=== PATIENT | female | born 1940 | race Caucasian/White ===

== ENCOUNTER 2018-07-17 16:47 | Emergency (ER) | payer MEDICARE ==
[2018-07-17 17:04] VITALS: BP 160/93
--- NOTE | 2018-07-17 18:09 | UC ---
Ear Complaint HPI - HPI Summary HPI Summary: 77 yo female with URI symptoms x 2 weeks runny nose and cough as well as sinus pressure and post nasal drip for one week has had right otalgia and decreased hearing as well as the constant feeling she needs her ear to "POP" - History of Current Complaint Chief Complaint: UCEar Stated Complaint: EAR ACHE Time Seen by Provider: 07/17/18 18:06 Hx Obtained From: Patient Onset/Duration: Sudden Onset, Gradual Onset Severity Initially: Mild Severity Currently: Moderate Pain Intensity: 6 Pain Scale Used: 0-10 Numeric Aggravating Factors: Nothing Alleviating Factors: Nothing Associated Signs/Symptoms: Positive: Hearing Loss, URI Symptoms - Allergies/Home Medications Allergies/Adverse Reactions: Allergies Allergy/AdvReac Type Severity Reaction Status Date / Time No Known Allergies Allergy Verified 07/17/18 17:05 Home Medications: Home Medications Atenolol TAB* [Tenormin TAB* 50 MG] 50 mg PO DAILY 07/17/18 [History Confirmed 07/17/18] Estradiol [Divigel] 1.1 mg TOPICAL DAILY 07/17/18 [History Confirmed 07/17/18] Losartan TAB* [Cozaar TAB*] 100 mg PO DAILY 07/17/18 [History Confirmed 07/17/18 ] Rivaroxaban TAB(*) [Xarelto 20 mg] 20 mg PO DAILY 07/17/18 [History Confirmed ] Simvastatin TAB(NF) [Zocor 20 MG (NF)] 20 mg PO DAILY 07/17/18 [History Confirmed 07/17/18] PMH/Surg Hx/FS Hx/Imm Hx Previously Healthy: Yes Endocrine History: Dyslipidemia Cardiovascular History: Hypertension, Atrial Fibrillation - Surgical History Surgical History: Yes Surgery Procedure, Year, and Place: back - Family History Known Family History: Positive: Hypertension - Social History Alcohol Use: Daily Substance Use Type: None Smoking Status (MU): Former Smoker When Did the Patient Quit Smoking/Using Tobacco: 50 years ago Review of Systems All Other Systems Reviewed And Are Negative: Yes Constitutional: Positive: Negative Skin: Positive: Negative Eyes: Positive: Negative ENT: Positive: Ear Ache, Nasal Discharge, Sinus Congestion Respiratory: Positive: Cough Cardiovascular: Positive: Negative Gastrointestinal: Positive: Negative Genitourinary: Positive: Negative Motor: Positive: Negative Neurovascular: Positive: Negative Musculoskeletal: Positive: Negative Neurological: Positive: Negative Psychological: Positive: Negative Physical Exam Triage Information Reviewed: Yes Appearance: Well-Appearing, No Pain Distress, Well-Nourished Vital Signs: Initial Vital Signs Temp 98.6 F 07/17/18 16:58 Pulse 102 07/17/18 16:58 Resp 12 07/17/18 16:58 BP 160/93 07/17/18 16:58 Pulse Ox 97 07/17/18 16:58 Eyes: Positive: Conjunctiva Clear ENT: Positive: Nasal congestion, TM bulging - R, TM red - R, Uvula midline. Negative: Hearing grossly normal - decreased hearing right ear, Tonsillar swelling, Tonsillar exudate, Trismus, Muffled voice, Hoarse voice, Dental tenderness Dental: Negative: Abscess @ Neck: Positive: Supple, Nontender, No Lymphadenopathy Respiratory: Positive: Lungs clear, Normal breath sounds, No respiratory distress, No accessory muscle use Cardiovascular: Positive: Tachycardia. Negative: RRR Musculoskeletal: Positive: No Edema Neurological: Positive: Alert Psychological Exam: Normal Skin Exam: Normal Ear Complaint Course/Dx - Differential Dx/Diagnosis Provider Diagnosis: Right otitis media, Viral URI with cough Discharge - Sign-Out/Discharge Documenting (check all that apply): Patient Departure All imaging exams completed and their final reports reviewed: No Studies - Discharge Plan Condition: Stable Disposition: HOME Prescriptions: Amoxicillin PO (*) [Amoxicillin 500 MG CAP*] 500 mg PO BID #20 cap Patient Education Materials: Ear Infection (ED) Referrals: No Primary Care Phys,NOPCP [Primary Care Provider] - Additional Instructions: see your MD in 2 weeks if not completely back to normal - Billing Disposition and Condition Condition: STABLE Disposition: Home
== END 2018-07-17 18:25 | disposition home or self-care (01) ==
LOC: UCEAST 16:47
DX: H66.91 Otitis media, unspecified, right ear (principal); J06.9 Acute upper respiratory infection, unspecified; R05 Cough; I10 Essential (primary) hypertension; E78.5 Hyperlipidemia, unspecified; Z87.891 Personal history of nicotine dependence; Z79.01 Long term (current) use of anticoagulants
CPT/HCPCS: 99202; G0463